=== PATIENT | female | born 1975 | race Caucasian/White ===

== ENCOUNTER 2017-01-06 18:19 | Emergency (ER) | payer MEDICAID, OTHER ==
[~2017-01-06] VITALS: Ht 160 cm; Wt 52.0 kg
[~2017-01-06 18:19] MED LIST: Z.0.NO CURRENT MEDS
[2017-01-06 18:32] VITALS: BP 147/107; PULSE 68; RESP 18; TEMP 97.6; O2SAT 98
--- NOTE | 2017-01-06 19:20 | PD ---
HPI Chief Complaint: ENT Complaint Time Seen by Provider: 19:10 Travel History International Travel<30 days: No Contact w/Intl Traveler<30days: No Traveled to known affect area: No History of Present Illness HPI 41-year-old female presents for evaluation of left ear aural fullness. Symptoms started 1 week ago. She reports that it feels like her left ear is full, similar to the sensation that one would get when flying in an airplane. She has occasional pain in the left ear. She tried washing the area with peroxide but symptoms persist. Denies any cough, congestion, recent travel, recent swimming. She has no other complaints. PFSH Past Medical History Cancer: No Diabetes: No Glaucoma: No Hepatitis: No Hiatal Hernia: No Hypertension: No Medical other: Yes (LEGALLY BLIND, OPTIC NERVE ATROPHY) Thyroid Disease: No ?: Not LMP: 12/17/16 Past Surgical History Section: Yes Gynecologic Surgery: Yes (C SECTION X 1) Pacemaker: No Social History Alcohol Use: No Tobacco Use: No Allergies-Medications (Allergen,Severity, Reaction): Coded Allergies: No Known Allergies (Verified , 01/06/17) Reported Meds & Prescriptions Reported Meds & Active Scripts Active No Active Prescriptions or Reported Medications Review of Systems HENT: Positive: Other (left ear aural fullness), No: Congestion, Ear Discharge Respiratory: No: Cough Physical Exam Narrative GENERAL: Well developed well-nourished female in no acute distress SKIN: Warm and dry. HEAD: Atraumatic. Normocephalic. EYES: Pupils equal and round. No scleral icterus. No injection or drainage. ENT: No nasal bleeding or discharge. Mucous membranes pink and moist. Appears to be some air fluid levels behind left tympanic membrane. No erythema or bulging. No perforation. No pain with otic manipulation. No cerumen impaction or foreign body. NECK: Trachea midline. No JVD. No lymphadenopathy. Data Data Last Documented VS Vital Signs Date Time Temp Pulse Resp B/P Pulse Ox O2 Delivery O2 Flow Rate FiO2 01/06/17 18:32 97.6 68 18 147/107 98 MDM Medical Decision Making Medical Screen Exam Complete: Yes Emergency Medical Condition: Yes Medical Record Reviewed: Yes Differential Diagnosis Eustachian tube dysfunction, serous otitis media, suppurative otitis media, foreign body, cerumen impaction Narrative Course 41-year-old female presents with 1 week of left ear aural fullness. Examination and history are consistent with eustachian tube dysfunction. She is stable for discharge. Diagnosis Primary Impression: Eustachian tube dysfunction Qualified Code: H69.82 - Eustachian tube dysfunction, left Additional Instructions: Use [id number] nasal decongestants. Follow-up with primary care physician as needed. Med/Other Pt SpecificInfo: No Change to Meds Scripts No Active Prescriptions or Reported Meds Disposition: 01 DISCHARGE HOME Condition: Stable Trace Baptiste Jan 06, 2017 19:20
== END 2017-01-06 19:58 | disposition home or self-care (01) ==
LOC: PHEFT 18:19
DX: H69.82 Other specified disorders of Eustachian tube, left ear (principal)
CPT/HCPCS: 99282